=== PATIENT | female | born 1995 | race American Indian/Alaskan Native ===

== ENCOUNTER 2017-04-30 08:46 | Emergency (ER) | payer MEDICAID, OTHER ==
[2017-04-30 08:53] VITALS: BP 134/87
[2017-04-30 09:30] LABS: Basophils % (Auto) 0.4 % (0.0-1.8); Eosinophils % (Auto) 1.7 % (0.0-4.3); Hematocrit 37.1 % (30.3-42.9); Hemoglobin 12.5 gm/dl (10.1-14.3); Mean Corpuscular HGB Conc 34 % (30-34); Mean Corpuscular Hemoglobin 28 pg (28-32); Mean Corpuscular Volume 84 fl (79-97); Platelet Count 408 K/mm3 (140-440); Red Cell Distribution Width 13.8 % (13.2-15.2); White Blood Count 8.6 K/mm3 (4.5-11.0)
[2017-04-30 09:49] LABS: Alanine Aminotransferase 24 units/L (7-56); Albumin 4.3 g/dL (3.9-5); Albumin/Globulin Ratio 1.3 %; Alkaline Phosphatase 57 units/L (35-129); Anion Gap 19 mmol/L; BUN/Creatinine Ratio 18.33; Blood Urea Nitrogen 11 mg/dL (7-17); Calcium 9.3 mg/dL (8.4-10.2); Carbon Dioxide 25 mmol/L (22-30); Chloride 101.4 mmol/L (98-107); Glucose 100 mg/dL (65-100); Sodium 141 mmol/L (137-145); Total Protein 7.7 g/dL (6.3-8.2)
[2017-04-30 10:17] LABS: Bacteria,Urine 1+ /HPF (Negative); Bilirubin,Urine NEG (Negative); Blood,Urine NEG (Negative); Ketones,Urine NEG (Negative); Leukocyte Esterase,Urine SM (Negative); Mucus,Urine 1+ /HPF; Nitrite,Urine NEG (Negative); Protein,Urine <15 mg/dL mg/dL (Negative)
[2017-04-30 11:39] LABS: Lipase 25 units/L (13-60)
[2017-04-30] MEDS ORDERED: NORCO 5/325 PO ONE (12:45)
--- NOTE | 2017-04-30 12:45 | Emergency Department Report ---
ED Abdominal Pain HPI - General Chief Complaint: Abdominal Pain Stated Complaint: PELVIC PAIN Time Seen by Provider: 04/30/17 12:35 Source: patient Mode of arrival: Ambulatory Limitations: No Limitations - History of Present Illness MD Complaint: abdominal pain -: Gradual, week(s) Location: RLQ Radiation: none Migration to: no migration Severity: mild, moderate Quality: cramping Consistency: intermittent Worsens With: nothing, movement Associated Symptoms: denies other symptoms. denies: nausea, vomiting, diarrhea , fever, chills, constipation, dysuria, hematemesis, hematochezia, melena, hematuria, anorexia, syncope, other (NO CONCERN STD) Treatments Prior to Arrival: NSAIDs - Related Data LMP (females 10-50): other (2 W) Previous Rx's Medication Instructions Recorded Last Taken Type Naproxen [Naprosyn] 500 mg PO BID #20 tablet 11/01/13 Unknown Rx Penicillin Vk [Veetids TAB] 2 tab PO BID #40 tablet 11/01/13 Unknown Rx Acetaminophen/Codeine 1 tab PO Q6H PRN #25 tab 06/02/14 Unknown Rx [Acetaminophen-Codeine #3 TAB] Cyclobenzaprine [Flexeril 10mg] 10 mg PO TID PRN #30 tablet 06/02/14 Unknown Rx Ibuprofen [Motrin] 600 mg PO Q8H PRN #50 tablet 06/02/14 Unknown Rx traMADol [Ultram] 50 mg PO Q6HR PRN #10 tablet 04/30/17 Unknown Rx Allergies Allergy/AdvReac Type Severity Reaction Status Date / Time No Known Allergies Allergy Verified 11/01/13 19:51 ED Review of Systems ROS: Stated complaint: PELVIC PAIN Other details as noted in HPI Comment: Unobtainable due to pts medical conditions Constitutional: no symptoms reported, see HPI. denies: chills Eyes: as per HPI. denies: eye pain ENT: as per HPI. denies: ear pain, throat pain Respiratory: no symptoms reported, see HPI. denies: cough, orthopnea Cardiovascular: as per HPI. denies: chest pain, palpitations, dyspnea on exertion, orthopnea Endocrine: no symptoms reported, see HPI. denies: excessive sweating, flushing , intolerance to cold, intolerance to heat Gastrointestinal: as per HPI, abdominal pain. denies: nausea, vomiting, diarrhea, constipation, hematemesis, melena Genitourinary: as per HPI, abnormal menses (SPOTTING), other (IUD 5 Y OLD). denies: urgency, dysuria, frequency, hematuria, discharge Musculoskeletal: as per HPI. denies: back pain Skin: as per HPI. denies: rash, lesions Neurological: as per HPI. denies: headache, weakness Psychiatric: as per HPI. denies: anxiety, depression Hematological/Lymphatic: as per HPI. denies: easy bleeding ED Past Medical Hx - Past Medical History Previous Medical History?: Yes Additional medical history: preeclampsia - Surgical History Past Surgical History?: Yes Additional Surgical History: csection - Social History Smoking Status: Never Smoker Substance Use Type: None - Medications Home Medications: Home Medications Medication Instructions Recorded Confirmed Last Taken Type Naproxen [Naprosyn] 500 mg PO BID #20 tablet 11/01/13 Unknown Rx Penicillin Vk [Veetids TAB] 2 tab PO BID #40 tablet 11/01/13 Unknown Rx Acetaminophen/Codeine 1 tab PO Q6H PRN #25 tab 06/02/14 Unknown Rx [Acetaminophen-Codeine #3 TAB] Cyclobenzaprine [Flexeril 10mg] 10 mg PO TID PRN #30 tablet 06/02/14 Unknown Rx Ibuprofen [Motrin] 600 mg PO Q8H PRN #50 tablet 06/02/14 Unknown Rx traMADol [Ultram] 50 mg PO Q6HR PRN #10 tablet 04/30/17 Unknown Rx ED Physical Exam - General Limitations: No Limitations General appearance: alert, in no apparent distress - Head Head exam: Present: atraumatic - Eye Eye exam: Present: normal appearance, PERRL - ENT ENT exam: Present: normal orophraynx, mucous membranes moist - Neck Neck exam: Present: normal inspection. Absent: tenderness, meningismus - Respiratory Respiratory exam: Present: normal lung sounds bilaterally. Absent: respiratory distress, wheezes, rales, rhonchi, stridor, chest wall tenderness, accessory muscle use, decreased breath sounds, prolonged expiratory - Cardiovascular Cardiovascular Exam: Present: regular rate, normal rhythm (90 ON EXAM) - GI/Abdominal GI/Abdominal exam: Present: soft, normal bowel sounds, other (N BM THIS AM). Absent: distended, tenderness, guarding, rebound, rigid, diminished bowel sounds , hyperactive bowel sounds, hypoactive bowel sounds, organomegaly, mass, bruit, pulsatile mass, hernia - Rectal Rectal exam: Present: deferred - Extremities Exam Extremities exam: Present: normal inspection, full ROM. Absent: tenderness - Back Exam Back exam: Present: normal inspection, full ROM. Absent: tenderness, CVA tenderness (R), CVA tenderness (L), muscle spasm, paraspinal tenderness, vertebral tenderness - Neurological Exam Neurological exam: Present: alert, oriented X3, CN II-XII intact, normal gait, reflexes normal - Psychiatric Psychiatric exam: Present: normal affect, normal mood - Skin Skin exam: Present: warm, dry, intact, normal color ED Course Vital Signs 04/30/17 08:51 Temperature 98 F Pulse Rate 110 H Respiratory 16 Rate Blood Pressure 134/87 O2 Sat by Pulse 100 Oximetry - Reevaluation(s) Reevaluation #1: 04/30/17 to er bc she thought she was preg labs noted preg neg see note vss non ill no fever non toxic hr 90 on repeat exam dc home w dc poc ED Medical Decision Making - Lab Data Result diagrams: 04/30/17 09:01 04/30/17 09:01 - Medical Decision Making LABS N PREG NEG NO CONCERN STD IUD ABD EXAM WNL - Differential Diagnosis RO V UTI Critical care attestation.: If time is entered above; I have spent that time in minutes in the direct care of this critically ill patient, excluding procedure time. ED Disposition Clinical Impression: Abdominal cramping Disposition: DC-01 TO HOME OR SELFCARE Is pt being admited?: No Does the pt Need Aspirin: No Condition: Stable Instructions: Dysmenorrhea (ED), Abdominal Pain (ED) Additional Instructions: REST FLUIDS MED ORDERED FOLLOW UP OB SAFE SEX Prescriptions: traMADol [Ultram] 50 mg PO Q6HR PRN #10 tablet PRN Reason: Pain Referrals: PRIMARY CARE, [Primary Care Provider] - 3-5 Days ELO TURNER MD [Staff Physician] - 3-5 Days BREANN TYSON MD [Staff Physician] - 3-5 Days Time of Disposition: 12:48
== END 2017-04-30 13:21 | disposition home or self-care (01) ==
LOC: ED 08:46
DX: R10.9 Unspecified abdominal pain (principal); Z98.890 Other specified postprocedural states
CPT/HCPCS: 36415; 80053; 81001; 81025; 83690; 85025; 99283

== ENCOUNTER 2017-05-02 07:42 | Emergency (ER) | payer SELFPAY ==
[2017-05-02 08:18] LABS: Basophils % (Auto) 0.4 % (0.0-1.8); Eosinophils % (Auto) 1.7 % (0.0-4.3); Hematocrit 36.1 % (30.3-42.9); Hemoglobin 11.9 gm/dl (10.1-14.3); Mean Corpuscular HGB Conc 33 % (30-34); Mean Corpuscular Hemoglobin 28 pg (28-32); Mean Corpuscular Volume 84 fl (79-97); Platelet Count 398 K/mm3 (140-440); Red Blood Count 4.31 M/mm3 (3.65-5.03); Red Cell Distribution Width 13.5 % (13.2-15.2); White Blood Count 7.8 K/mm3 (4.5-11.0)
[2017-05-02 08:19] LABS: Bacteria,Urine 1+ /HPF (Negative); Bilirubin,Urine NEG (Negative); Blood,Urine NEG (Negative); Ketones,Urine NEG (Negative); Leukocyte Esterase,Urine NEG (Negative); Mucus,Urine FEW /HPF; Nitrite,Urine NEG (Negative); Protein,Urine <15 mg/dL mg/dL (Negative); Urobilinogen,Urine < 2.0 mg/dL (<2.0); WBC,Urine < 1.0 /HPF (0.0-6.0)
[2017-05-02 08:34] LABS: Alanine Aminotransferase 23 units/L (7-56); Albumin 4.5 g/dL (3.9-5); Albumin/Globulin Ratio 1.4 %; Alkaline Phosphatase 50 units/L (35-129); Anion Gap 16 mmol/L; BUN/Creatinine Ratio 14.28; Blood Urea Nitrogen 10 mg/dL (7-17); Calcium 9.7 mg/dL (8.4-10.2); Carbon Dioxide 27 mmol/L (22-30); Chloride 99.9 mmol/L (98-107); Glucose 95 mg/dL (65-100); Lipase 21 units/L (13-60); Potassium 3.9 mmol/L (3.6-5.0); Sodium 139 mmol/L (137-145); Total Protein 7.7 g/dL (6.3-8.2)
[2017-05-02] MEDS ORDERED: NORCO 5/325 PO ONE (10:35)
[2017-05-02] MEDS ORDERED: ZOFRAN ODT PO ONE (10:35)
--- NOTE | 2017-05-02 10:54 | Emergency Department Report ---
ED Abdominal Pain HPI - General Chief Complaint: Abdominal Pain Stated Complaint: RIGHT SIDE ABD PAIN Time Seen by Provider: 05/02/17 10:26 Source: patient Mode of arrival: Ambulatory Limitations: No Limitations - History of Present Illness Initial Comments: 21-year-old female with a past medical surgical history previous presents to the hospital complaints of abdominal pain 1 week. Patient has had intermittent cramping right-sided abdominal pain. She's also had intermittent sharp right upper quadrant pain for the past 4-5 days. Pain moderate in intensity Worse with palpation. No change with food. Positive nausea without vomiting, melena, hematochezia, hematemesis, or fever. Patient was here on the for the same symptoms and was discharged on tramadol. Patient states she continues to have pain so over time. PMD: None Severity scale (0 -10): 8 - Related Data Previous Rx's Medication Instructions Recorded Last Taken Type Naproxen [Naprosyn] 500 mg PO BID #20 tablet 11/01/13 Unknown Rx Penicillin Vk [Veetids TAB] 2 tab PO BID #40 tablet 11/01/13 Unknown Rx Acetaminophen/Codeine 1 tab PO Q6H PRN #25 tab 06/02/14 Unknown Rx [Acetaminophen-Codeine #3 TAB] Cyclobenzaprine [Flexeril 10mg] 10 mg PO TID PRN #30 tablet 06/02/14 Unknown Rx Ibuprofen [Motrin] 600 mg PO Q8H PRN #50 tablet 06/02/14 Unknown Rx traMADol [Ultram] 50 mg PO Q6HR PRN #10 tablet 04/30/17 Unknown Rx HYDROcodone/APAP 5-325 [Hamilton 1 each PO Q6HR PRN #20 tablet 05/02/17 Unknown Rx 5/325] Ibuprofen [Motrin] 800 mg PO Q8HR PRN #30 tablet 05/02/17 Unknown Rx Allergies Allergy/AdvReac Type Severity Reaction Status Date / Time No Known Allergies Allergy Verified 11/01/13 19:51 ED Review of Systems ROS: Stated complaint: RIGHT SIDE ABD PAIN 8 WEEKS PREG. Other details as noted in HPI Comment: All other systems reviewed and negative Other: Constitutional: No fevers chills Eyes: No eye pain visual changes or discharge ENT: No ear pain or throat pain Neck: Denies pain Respiratory: Denies cough wheezing shortness of breath Cardiovascular: Denies chest pain, palpitations, syncope GI: As per HPI : Denies dysuria Musculoskeletal: Pain radiates to the back Skin: Denies rash, lesions, erythema Neurologic: Denies headache, numbness, weakness Psychiatric: Denies suicidal ideation, hallucinations ED Past Medical Hx - Past Medical History Previous Medical History?: No Additional medical history: preeclampsia - Surgical History Past Surgical History?: Yes Additional Surgical History: csection - Social History Smoking Status: Never Smoker Substance Use Type: None - Medications Home Medications: Home Medications Medication Instructions Recorded Confirmed Last Taken Type Naproxen [Naprosyn] 500 mg PO BID #20 tablet 11/01/13 Unknown Rx Penicillin Vk [Veetids TAB] 2 tab PO BID #40 tablet 11/01/13 Unknown Rx Acetaminophen/Codeine 1 tab PO Q6H PRN #25 tab 06/02/14 Unknown Rx [Acetaminophen-Codeine #3 TAB] Cyclobenzaprine [Flexeril 10mg] 10 mg PO TID PRN #30 tablet 06/02/14 Unknown Rx Ibuprofen [Motrin] 600 mg PO Q8H PRN #50 tablet 06/02/14 Unknown Rx traMADol [Ultram] 50 mg PO Q6HR PRN #10 tablet 04/30/17 Unknown Rx HYDROcodone/APAP 5-325 [[place] 1 each PO Q6HR PRN #20 tablet 05/02/17 Unknown Rx 5/325] Ibuprofen [Motrin] 800 mg PO Q8HR PRN #30 tablet 05/02/17 Unknown Rx ED Physical Exam - General Limitations: No Limitations - Other Other exam information: General: No limitations, patient is alert in no acute distress Head exam: Atraumatic, normocephalic Eyes exam: Normal appearance, pupils equal reactive to light, extraocular movements intact ENT: Moist mucous membrane, normal oropharynx Neck exam: Normal inspection, full range of motion, no meningismus nontender Respiratory exam: Clear to auscultation bilateral, no wheezes, rales, crackles Cardiovascular: Normal rate and rhythm, normal heart sounds Abdomen: Soft, nondistended, right upper quadrant and right lower quadrant tenderness. No rebound or guarding. Extremity: Full range of motion normal inspection no deformity Back: Normal Inspection, full range of motion, no tenderness Neurologic: Alert, oriented x3, cranial nerves intact, no motor or sensory deficit Psychiatric: normal affect, normal mood Skin: Warm, dry, intact ED Course Vital Signs 05/02/17 05/02/17 05/02/17 07:50 09:55 10:00 Temperature 99.1 F Pulse Rate 96 H 90 Respiratory 18 30 H 18 Rate Blood Pressure 141/93 122/83 Blood Pressure [Left] O2 Sat by Pulse 100 89 Oximetry 05/02/17 10:07 Temperature 99.0 F Pulse Rate 91 H Respiratory 18 Rate Blood Pressure Blood Pressure 122/83 [Left] O2 Sat by Pulse 100 Oximetry - Reevaluation(s) Reevaluation #1: 05/02/17 10:55 Hamilton and Toradol ordered. ED Medical Decision Making - Lab Data Result diagrams: 05/02/17 07:59 05/02/17 07:59 Lab Results 05/02/17 05/02/17 05/02/17 Range/Units 07:59 07:59 08:02 WBC 7.8 (4.5-11.0) K/mm3 RBC 4.31 (3.65-5.03) M/mm3 Hgb 11.9 (10.1-14.3) gm/dl Hct 36.1 (30.3-42.9) % MCV 84 (79-97) fl MCH 28 (28-32) pg MCHC 33 (30-34) % RDW 13.5 (13.2-15.2) % Plt Count 398 (140-440) K/mm3 Lymph % (Auto) 28.3 (13.4-35.0) % [place] % (Auto) 9.0 H (0.0-7.3) % Eos % (Auto) 1.7 (0.0-4.3) % Baso % (Auto) 0.4 (0.0-1.8) % Lymph # 2.2 (1.2-5.4) K/mm3 [place] # 0.7 (0.0-0.8) K/mm3 Eos # 0.1 (0.0-0.4) K/mm3 Baso # 0.0 (0.0-0.1) K/mm3 Seg Neutrophils % 60.6 (40.0-70.0) % Seg Neutrophils # 4.7 (1.8-7.7) K/mm3 Sodium 139 (137-145) mmol/L Potassium 3.9 (3.6-5.0) mmol/L Chloride 99.9 (98-107) mmol/L Carbon Dioxide 27 (22-30) mmol/L Anion Gap 16 mmol/L BUN 10 (7-17) mg/dL Creatinine 0.7 (0.7-1.2) mg/dL Estimated GFR > 60 ml/min BUN/Creatinine Ratio 14.28 % Glucose 95 (65-100) mg/dL Calcium 9.7 (8.4-10.2) mg/dL Total Bilirubin 0.20 (0.1-1.2) mg/dL AST 20 (5-40) units/L ALT 23 (7-56) units/L Alkaline Phosphatase 50 (35-129) units/L Total Protein 7.7 (6.3-8.2) g/dL Albumin 4.5 (3.9-5) g/dL Albumin/Globulin Ratio 1.4 % Lipase 21 (13-60) units/L Urine Color Yellow (Yellow) Urine Turbidity Clear (Clear) Urine pH 8.0 H (5.0-7.0) Ur Specific [place] 1.013 (1.003-1.030) Urine Protein <15 mg/dl (Negative) mg/dL Urine Glucose (UA) Neg (Negative) mg/dL Urine Ketones Neg (Negative) mg/dL Urine Blood Neg (Negative) Urine Nitrite Neg (Negative) Urine Bilirubin Neg (Negative) Urine Urobilinogen < 2.0 (<2.0) mg/dL Ur Leukocyte Esterase Neg (Negative) Urine WBC (Auto) < 1.0 (0.0-6.0) /HPF Urine RBC (Auto) 2.0 (0.0-6.0) /HPF U Epithel Cells (Auto) < 1.0 (0-13.0) /HPF Urine Bacteria (Auto) 1+ (Negative) /HPF Urine Mucus Few /HPF Urine HCG, Qual (Negative) 05/02/17 Range/Units 08:02 WBC (4.5-11.0) K/mm3 RBC (3.65-5.03) M/mm3 Hgb (10.1-14.3) gm/dl Hct (30.3-42.9) % MCV (79-97) fl MCH (28-32) pg MCHC (30-34) % RDW (13.2-15.2) % Plt Count (140-440) K/mm3 Lymph % (Auto) (13.4-35.0) % [place] % (Auto) (0.0-7.3) % Eos % (Auto) (0.0-4.3) % Baso % (Auto) (0.0-1.8) % Lymph # (1.2-5.4) K/mm3 [place] # (0.0-0.8) K/mm3 Eos # (0.0-0.4) K/mm3 Baso # (0.0-0.1) K/mm3 Seg Neutrophils % (40.0-70.0) % Seg Neutrophils # (1.8-7.7) K/mm3 Sodium (137-145) mmol/L Potassium (3.6-5.0) mmol/L Chloride (98-107) mmol/L Carbon Dioxide (22-30) mmol/L Anion Gap mmol/L BUN (7-17) mg/dL Creatinine (0.7-1.2) mg/dL Estimated GFR ml/min BUN/Creatinine Ratio % Glucose (65-100) mg/dL Calcium (8.4-10.2) mg/dL Total Bilirubin (0.1-1.2) mg/dL AST (5-40) units/L ALT (7-56) units/L Alkaline Phosphatase (35-129) units/L Total Protein (6.3-8.2) g/dL Albumin (3.9-5) g/dL Albumin/Globulin Ratio % Lipase (13-60) units/L Urine Color (Yellow) Urine Turbidity (Clear) Urine pH (5.0-7.0) Ur Specific [place] (1.003-1.030) Urine Protein (Negative) mg/dL Urine Glucose (UA) (Negative) mg/dL Urine Ketones (Negative) mg/dL Urine Blood (Negative) Urine Nitrite (Negative) Urine Bilirubin (Negative) Urine Urobilinogen (<2.0) mg/dL Ur Leukocyte Esterase (Negative) Urine WBC (Auto) (0.0-6.0) /HPF Urine RBC (Auto) (0.0-6.0) /HPF U Epithel Cells (Auto) (0-13.0) /HPF Urine Bacteria (Auto) (Negative) /HPF Urine Mucus /HPF Urine HCG, Qual Negative (Negative) - Radiology Data Radiology results: report reviewed Transvaginal/pelvic ultrasound: Bilateral ovarian status. Right 1.9 complex partially cystic area within the right ovary may represent a ruptured cyst. Left ovary similar appearing 1.6 complex partial cystic area within the left ovary may represent ruptured ovarian cyst. No pelvic fluid collection. Normal uterus and endometrium. IUD in place Ultrasound abdomen right upper quadrant: Fatty liver. - Medical Decision Making Pain improved after receiving Hamilton and Toradol. Patient be discharged with pain medication and [facility] follow-up for bilateral ruptured ovarian cyst. - Differential Diagnosis ovarian cyst, UTI, renal colic, biliary colic, gastritis, , appy Critical Care Time: No Critical care attestation.: If time is entered above; I have spent that time in minutes in the direct care of this critically ill patient, excluding procedure time. ED Disposition Clinical Impression: Ruptured ovarian cyst Disposition: TO HOME OR SELFCARE Is pt being admited?: No Does the pt Need Aspirin: No Condition: Stable Instructions: Ovarian Cyst (ED) Additional Instructions: Take the medication as needed for pain. Follow-up with [facility] doctor provided with a [facility] doctor of your choice. Return if symptoms worsen. Prescriptions: HYDROcodone/APAP 5-325 [Hamilton 5/325] 1 each PO Q6HR PRN #20 tablet PRN Reason: Pain Ibuprofen [Motrin] 800 mg PO Q8HR PRN #30 tablet PRN Reason: Pain Referrals: [facility] [Provider Group] - 3-5 Days Time of Disposition: 14:00
[2017-05-02] MEDS ORDERED: TORADOL IM ONE (10:55)
--- NOTE | 2017-05-02 13:25 | Ultrasound Report ---
ULTRASOUND PELVIC COMPLETE ULTRASOUND TRANSVAGINAL HISTORY: Right lower quadrant pain, right pelvic pain. TECHNIQUE: Transabdominal and transvaginal ultrasound with color doppler interrogation. The uterus is anteflexed. The uterus measures 7.4 x 4.2 x 5.7 cm. No uterine mass is identified. The endometrial stripe measures 8 mm. An intrauterine device is in place. The right ovary measures 3.3 x 1.9 x 4.4 cm. There is a 1.9 cm complex, partially cystic area within the right ovary. This may represent a ruptured ovarian cyst. The left ovary measures 3.5 x 2.6 x 2.5 cm. There is a similar appearing 1.6 cm complex, partially cystic area within the left ovary. This also may represent a ruptured ovarian cyst. No pelvic fluid collection. IMPRESSION: Bilateral complex ovarian cysts as outlined above. Ruptured ovarian cysts? Normal uterus and endometrium.
[2017-05-02 14:30] VITALS: BP 115/80
--- NOTE | 2017-05-03 08:03 | Ultrasound Report ---
RIGHT UPPER QUADRANT ULTRASOUND: HISTORY: Right upper quadrant abdominal pain. Technique: Transabdominal ultrasound imaging with Doppler interrogation. Comment: This examination is just presented to me for interpretation due to technical factors. A verbal report was given to the emergency department yesterday at the time of the study. FINDINGS: The gallbladder is sonolucent with no evidence of stones, polyps or wall thickening. The common duct is normal in caliber. The liver parenchyma is slightly echogenic consistent with mild fatty infiltration or nonspecific parenchymal disease. No liver mass or surface nodularity is detected. Images of the pancreas, right kidney and aorta are within normal limits. No perihepatic ascites. IMPRESSION: Echogenic liver most consistent with mild fatty infiltration. Unremarkable biliary system.
== END 2017-05-02 14:29 | disposition home or self-care (01) ==
LOC: ED 07:42
DX: N83.202 Unspecified ovarian cyst, left side (principal); N83.201 Unspecified ovarian cyst, right side
CPT/HCPCS: 36415; 76705; 76830; 76856; 80053; 81001; 81025; 83690; 85025; 96372; 99284; J1885; Q0162

== ENCOUNTER 2017-11-05 14:25 | Emergency (ER) | payer SELFPAY ==
--- NOTE | 2017-11-05 17:54 | Emergency Department Report ---
ED ENT HPI - General Chief complaint: Earache Stated complaint: FOREIGN BODY LEFT EAR Time Seen by Provider: 11/05/17 17:26 Source: patient Mode of arrival: Ambulatory Limitations: No Limitations - History of Present Illness Initial comments: This is a 22 y.o. female that presents with pain to right ear with muffled hearing for 5 days. Patient reports waking up with missing inner ear piercing and muffled hearing. She put her finger in right ear and hearing returned. She though possibly she would find earring on the floor or mixed between sheets. She was unable to find it and hearing returned muffled this morning. She placed a q-tip in right ear with an attempt to remove earring with no luck. She decided to come in for assessment. She is now starting to hear a ringing sound and all other sounds are muffled. Denies discharge, difficulty swallowing, or itching. Right ear is painful to touch. MD complaint: ear pain (right ear), foreign body (earring or back lodged in ear) -: days(s) (5) Location: R ear Severity: moderate Severity scale (0 -10): 7 Quality: aching Consistency: constant Improves with: none Worsens with: other (touch) Context- Ear: other (earring or back of earring lodged in right ear) Associated Symptoms: hearing loss. denies: fever, cough, gum swelling, toothache, pain with swallowing, sore throat, tinnitus, discharge from ear, rhinorrhea - Related Data Previous Rx's Medication Instructions Recorded Last Taken Type Naproxen [Naprosyn] 500 mg PO BID #20 tablet 11/01/13 Unknown Rx Penicillin Vk [Veetids TAB] 2 tab PO BID #40 tablet 11/01/13 Unknown Rx Acetaminophen/Codeine 1 tab PO Q6H PRN #25 tab 06/02/14 Unknown Rx [Acetaminophen-Codeine #3 TAB] Cyclobenzaprine [Flexeril 10mg] 10 mg PO TID PRN #30 tablet 06/02/14 Unknown Rx Ibuprofen [Motrin] 600 mg PO Q8H PRN #50 tablet 06/02/14 Unknown Rx traMADol [Ultram] 50 mg PO Q6HR PRN #10 tablet 04/30/17 Unknown Rx HYDROcodone/APAP 5-325 [[employer] 1 each PO Q6HR PRN #20 tablet 05/02/17 Unknown Rx 5/325] Ibuprofen [Motrin] 800 mg PO Q8HR PRN #30 tablet 05/02/17 Unknown Rx Allergies Allergy/AdvReac Type Severity Reaction Status Date / Time No Known Allergies Allergy Verified 11/01/13 19:51 ED Dental HPI - General Chief complaint: Earache Stated complaint: FOREIGN BODY LEFT EAR Time Seen by Provider: 11/05/17 17:26 Source: patient Mode of arrival: Ambulatory Limitations: No Limitations - Related Data Previous Rx's Medication Instructions Recorded Last Taken Type Naproxen [Naprosyn] 500 mg PO BID #20 tablet 11/01/13 Unknown Rx Penicillin Vk [Veetids TAB] 2 tab PO BID #40 tablet 11/01/13 Unknown Rx Acetaminophen/Codeine 1 tab PO Q6H PRN #25 tab 06/02/14 Unknown Rx [Acetaminophen-Codeine #3 TAB] Cyclobenzaprine [Flexeril 10mg] 10 mg PO TID PRN #30 tablet 06/02/14 Unknown Rx Ibuprofen [Motrin] 600 mg PO Q8H PRN #50 tablet 06/02/14 Unknown Rx traMADol [Ultram] 50 mg PO Q6HR PRN #10 tablet 04/30/17 Unknown Rx HYDROcodone/APAP 5-325 [[employer] 1 each PO Q6HR PRN #20 tablet 05/02/17 Unknown Rx 5/325] Ibuprofen [Motrin] 800 mg PO Q8HR PRN #30 tablet 05/02/17 Unknown Rx Allergies Allergy/AdvReac Type Severity Reaction Status Date / Time No Known Allergies Allergy Verified 11/01/13 19:51 ED Review of Systems ROS: Stated complaint: FOREIGN BODY LEFT EAR Other details as noted in HPI Constitutional: denies: chills, fever ENT: ear pain (right ear pain). denies: throat pain, dental pain, hearing loss , epistaxis, congestion Respiratory: denies: cough, orthopnea, shortness of breath, SOB with exertion, wheezing Cardiovascular: denies: chest pain, palpitations, orthopnea, edema, syncope Gastrointestinal: denies: abdominal pain, nausea, diarrhea Neurological: denies: headache, weakness, numbness, paresthesias Psychiatric: denies: anxiety, depression ED Past Medical Hx - Past Medical History Additional medical history: preeclampsia - Surgical History Additional Surgical History: csection - Social History Smoking Status: Never Smoker Substance Use Type: None - Medications Home Medications: Home Medications Medication Instructions Recorded Confirmed Last Taken Type Naproxen [Naprosyn] 500 mg PO BID #20 tablet 11/01/13 Unknown Rx Penicillin Vk [Veetids TAB] 2 tab PO BID #40 tablet 11/01/13 Unknown Rx Acetaminophen/Codeine 1 tab PO Q6H PRN #25 tab 06/02/14 Unknown Rx [Acetaminophen-Codeine #3 TAB] Cyclobenzaprine [Flexeril 10mg] 10 mg PO TID PRN #30 tablet 06/02/14 Unknown Rx Ibuprofen [Motrin] 600 mg PO Q8H PRN #50 tablet 06/02/14 Unknown Rx traMADol [Ultram] 50 mg PO Q6HR PRN #10 tablet 04/30/17 Unknown Rx HYDROcodone/APAP 5-325 [[employer] 1 each PO Q6HR PRN #20 tablet 05/02/17 Unknown Rx 5/325] Ibuprofen [Motrin] 800 mg PO Q8HR PRN #30 tablet 05/02/17 Unknown Rx ED Physical Exam - General Limitations: No Limitations General appearance: alert, in no apparent distress - ENT ENT exam: Present: mucous membranes moist. Absent: normal external ear exam ( silver metal foreign body horizontal in ear canal) - Neck Neck exam: Present: normal inspection, full ROM. Absent: tenderness, meningismus, lymphadenopathy - Respiratory Respiratory exam: Present: normal lung sounds bilaterally. Absent: respiratory distress - Cardiovascular Cardiovascular Exam: Present: regular rate, normal rhythm, normal heart sounds. Absent: systolic murmur, diastolic murmur, rubs, gallop - GI/Abdominal GI/Abdominal exam: Present: soft, normal bowel sounds. Absent: distended, tenderness, guarding, rebound, rigid, organomegaly, mass - Neurological Exam Neurological exam: Present: alert, oriented X3, normal gait - Psychiatric Psychiatric exam: Present: normal affect, normal mood - Skin Skin exam: Present: warm, dry, intact, normal color. Absent: rash ED Course Vital Signs 11/05/17 14:57 Temperature 98.6 F Pulse Rate 86 Respiratory 18 Rate Blood Pressure 131/85 ED Medical Decision Making - Medical Decision Making This is a 22 y.o. female who presents with right ear pain and muffled hearing for 5 days. Patient is stable and was examined by me. Vitals normal. Physical exam findings of silver foreign body, appear to be a earring back lodged in right ear. One failed attempt to remove foreign body with alligator forceps. Patient could not tolerate procedure. Ear lavage attempt failed. Referral to ENT. Discussed plan with patient and she agreed with plan. Use tylenol or ibuprofen for pain. Discharged home in stable condition. Follow up with ENT in 24-72 hours or [facility]. Critical care attestation.: If time is entered above; I have spent that time in minutes in the direct care of this critically ill patient, excluding procedure time. ED Disposition Clinical Impression: Otalgia of right ear Acute foreign body of right ear canal Qualifiers: Encounter type: initial encounter Qualified Code(s): T16.1XXA - Foreign body in right ear, initial encounter Disposition: TO HOME OR SELFCARE Is pt being admited?: No Does the pt Need Aspirin: No Condition: Stable Instructions: Ear Foreign Body (ED), Earache (ED) Additional Instructions: Follow up with ENT or [facility] in 24 hours. Take ibuprofen or tylenol for pain. Return to ER if discharge, hearing is worse, difficulty swallowing, and severe pain. Referrals: [facility] [Provider Group] - 3-5 Days [facility] [Provider Group] - 3-5 Days [facility] [Outside] - 3-5 Days Time of Disposition: 18:36 Print Language: URDU
[2017-11-05] MEDS ORDERED: HYDROGEN PEROXIDE TP ONE (18:17)
[2017-11-05 19:05] VITALS: BP 130/84
== END 2017-11-05 18:40 | disposition home or self-care (01) ==
LOC: ED 14:25
DX: T16.1XXA Foreign body in right ear, initial encounter (principal); X58.XXXA Exposure to other specified factors, initial encounter; Y93.89 Activity, other specified; Y92.89 Other specified places as the place of occurrence of the external cause; Y99.8 Other external cause status
CPT/HCPCS: 99282

== ENCOUNTER 2019-08-21 13:57 | Emergency (ER) | payer MEDICAID ==
[2019-08-21 15:23] VITALS: BP 139/88
--- NOTE | 2019-08-21 15:25 | Emergency Department Report ---
Blank Doc - Documentation Documentation: C/O OF COUGH AND CONGESTION WITH [facility] AND SORE THROAT FOR NEARLY 1 MONTH AND RECENT START OF FEVERISH AND CHILLS. WAS SEEN AT [facility] 2-3 WEEKS AGO AND TREATED WITH INHALER. MOM AND SON DX July WITH FLU. NO CHEST , VISUAL CHANGES, NO HEMOPTYSIS OR ABDOMINAL PAIN. PLAN MSE
== END 2019-08-21 15:30 | disposition home or self-care (01) ==
LOC: ED 13:57
DX: R05 Cough (principal); R09.81 Nasal congestion
CPT/HCPCS: 99281